=== PATIENT | female | born 1960 | race Caucasian/White ===

== ENCOUNTER 2019-06-06 06:14 | Observation (INO) | payer BC ==
[2019-06-06] MEDS ORDERED: Dextrose 50% Abboject 50 ML SYRINGE IVP PRN (07:45)
[2019-06-06] MEDS ORDERED: Dextrose 5% in Water 1,000 ML IV PRN ×2 (07:45→08:41)
[2019-06-06] MEDS ORDERED: Dextrose 5 % And 0.9 % NaCl 1,000 ML IV SCH (07:45)
[2019-06-06] MEDS ORDERED: HumaLOG 300 UNITS/3 ML VIAL SC PRN (07:48)
[2019-06-06 08:02] VITALS: BMI 23.5
[2019-06-06] MEDS ORDERED: Ondansetron PF 4 MG/2 ML Vial IVP PRN (08:41)
[2019-06-06] MEDS ORDERED: Dextrose 50 % In Water 50 ML SYRINGE IV PRN (08:41)
[2019-06-06] MEDS ORDERED: Ondansetron ODT 4 MG TAB PO PRN (08:41)
[2019-06-06] MEDS ORDERED: Bisacodyl 10 MG SUPP PR PRN (08:41)
[2019-06-06] MEDS ORDERED: Acetaminophen 325 MG TAB PO PRN (08:41)
[2019-06-06] MEDS ORDERED: HYDROcodone/Acetaminophen 5/325 mg Tablet PO PRN (08:41)
[2019-06-06] MEDS ORDERED: Senokot S 8.6-50 MG TAB PO PRN (08:41)
[2019-06-06] MEDS ORDERED: Atorvastatin Calcium 20 MG TAB PO SCH (09:00)
--- NOTE | 2019-06-06 09:53 | HP ---
CHIEF COMPLAINT: Acute mental status change and hypoglycemia. HISTORY OF PRESENT ILLNESS: A 58-year-old female with insulin-requiring diabetes mellitus, on insulin pump, admitted on transfer from [facility] for evaluation and treatment of refractory hypoglycemia. The patient reportedly was observed by spouse to be acting abnormal and restless and talking while asleep. They checked her blood sugar and it was noted to be very low around 40s, hence they gave some oral glucose and rechecked, but it was showed to be very high. A few minutes later, they rechecked it and it showed 40 again, and the patient was beginning to have slurry speech and marked confusion as well as inappropriate behavior; hence she was taken to the ER in [place]. EMS has given the patient some glucose drink, and blood sugar has gone up to above 200, but on arrival to the ER, it was noticed to be in 100s, hence she got additional treatment for hypoglycemia. She was rechecked and blood sugar was still low after increasing to above 200, hence decision was made to bring the patient over here for further evaluation and treatment. The patient reportedly stopped her insulin pump around 0530 hours this morning. Of note, son was diagnosed with influenza a few days ago and was started on Tamiflu. Also yesterday, the patient exerted herself a little more due to preparations for Thanksgiving and only ate once in the afternoon around 3 o'clock when she gave herself additional bolus of 5 units of short-acting insulin. She did not eat in the morning nor in the evening. There is no history of fever, nausea, vomiting, abdominal pain, leg swelling, dysuria, hematuria, change in bowel habit, or focal weakness. The patient, however, was admitted to sneezing yesterday afternoon, which has subsided. In the emergency room here, the patient was noted to have blood sugar in 100s, hence was started on D5 half-normal saline at 50 mL which the patient is still getting. Blood pressures have stabilized, and the patient seems back to baseline. She is talking and conversing with appropriate mental status. She also has had her breakfast and feels a lot better. She, however, has no memory of event leading to have this spouse calling the EMS to take her to the emergency room. PAST MEDICAL HISTORY: 1. Insulin-dependent diabetes mellitus, on insulin pump. 2. Hypothyroidism. 3. Hyperlipidemia. 4. Hypertension. PAST SURGICAL HISTORY: section and tubal ligation. FAMILY HISTORY: Reviewed, but noncontributory. SOCIAL HISTORY: The patient lives with spouse and family. Denied alcohol or recreational drug use or tobacco. ALLERGIES: NO KNOWN DRUG ALLERGIES REPORTED. CURRENT HOME MEDICATIONS: 1. Insulin pump. 2. Synthroid 100 mcg daily. 3. Lipitor 20 mg p.o. daily. 4. Ramipril 10 mg p.o. daily at bedtime. REVIEW OF SYSTEMS: Twelve-point review of system was performed, was negative other than pertinent positives and negatives included in the history of present illness. PHYSICAL EXAMINATION: VITAL SIGNS: Current vitals show temperature 97.7, pulse 86, respiratory rate 16, SpO2 of 99% on room air, blood pressure is 153/67. GENERAL: A healthy-looking female, in no distress. Afebrile. Anicteric. Acyanotic. HEENT: Normocephalic and atraumatic. Oral mucosa is moist. NECK: Supple. Nontender with good range of motion. No masses or lymphadenopathy appreciated. CARDIOVASCULAR: Regular rhythm and rate. Normal heart sounds 1 and 2. No obvious murmur was appreciated. RESPIRATORY: Good air entry bilaterally with no crackles or rhonchi or use of accessory muscles. GI: Full, soft, nontender, nondistended with normal bowel sounds. EXTREMITIES: Grossly normal looking atraumatic with no edema or erythema. WASTE CHOPPER: Conscious, alert, oriented x3 with appropriate mental status. Cranial nerves 2 through 12 are grossly intact. The patient moves all extremities. The patient is ambulant. DIAGNOSTIC DATA: CBC showed WBC count of 8.7, hemoglobin of 13.1, MCV of 93.3, platelet of 255. CMP showed sodium 140, potassium 4.1, chloride 104, CO2 of 26, BUN 17, creatinine 0.96, glucose 218, calcium 9.2, total bilirubin 0.3, AST 19, ALT 23, alkaline phosphatase 56, total protein 7.2, albumin 3.2, globulin 3.0. Initial troponin was less than 0.010. Urinalysis showed yellow hazy urine with pH of 5.0, specific gravity of 1.025, urine glucose of 500, trace ketone and blood, but negative protein, nitrite, bilirubin, and leukocyte esterase. Urine microscopy showed rbc 0 to 3 and wbc 0 to 3 with 0 to 3 squamous cells. Chest x-ray reviewed by me showed no obvious consolidation or pneumothorax. Formal radiology read is awaited at this time. ASSESSMENT: 1. Acute mental status change due to hypoglycemia. 2. Refractory hypoglycemia, etiology is unclear, but seems to be related to poor oral intake while insulin therapy was continued in a patient who is noted herself a little more than usual. Occult infection is a concern. The patient reported sick contacts with son who has recent diagnosis of influenza and currently on Tamiflu. 3. Hypertension. 4. Hyperlipidemia. 5. Insulin-dependent diabetes mellitus, on insulin pump. 6. Hypothyroidism. PLAN: 1. We will continue D5 half-normal saline at 50 mL until after lunch. We will discontinue it after lunch and monitor glucose closely. We will treat hypoglycemia as we did according to protocol. 2. We will avoid insulin therapy today. 3. We will get respiratory viral panel to rule out viral infection. 4. UTI has been ruled out with urinalysis. 5. We will restart ramipril, Lipitor, and Synthroid. 6. DVT prophylaxis with Lovenox will be started. 7. We will continue diabetic diet. 8. Code status full code. Spouse is the surrogate decision maker. Further treatment to follow depending on hospital course. Job ID: [id number]
[2019-06-06] MEDS: Famotidine 20 MG TAB PO SCH ×2 (10:19→19:31)
[2019-06-06] MEDS: Enoxaparin Sodium 40 MG/0.4 ML SYRINGE SC SCH ×2 (10:20→10:24)
[2019-06-06] MEDS: Famotidine/PF 20 mg/2ml Vial SLOW IVP SCH ×2 (10:22→19:32)
[2019-06-06] MEDS ORDERED: Sodium Chloride 0.65% Nasal 44 ML BOT EA NARE PRN (20:04)
[2019-06-07 05:15] LABS: #Basophils 0.1 thou/uL (0.0-0.2); #Eosinphils 0.6 thou/uL (0.0-0.7); #Lymphocytes 1.8 thou/uL (1.20-3.40); #Monocytes 0.5 thou/uL (0.11-0.59); %Basophils 1.1 % (0.0-1.0); %Eosinophils 10.4 % (0.0-10.0); %Lymphocytes 30.2 % (21.0-51.0); %Monocytes 8.3 % (0.0-10.0); Hemoglobin 12.7 g/dL (12.0-16.0); Mean Corpuscular HGB CONC 33.5 g/dL (32.0-36.0); Mean Corpuscular Hemoglobin 30.1 pg (27.0-31.0); Mean Corpuscular Volume 89.9 fL (78.0-98.0); Mean Platelet Volume 7.2 fL (7.4-10.4); Platelet Count 250 thou/uL (130-400); RBC Distribution Width 11.4 % (11.5-14.5); Red Blood Cell (RBC) Count 4.21 mill/uL (4.20-5.40)
[2019-06-07 05:34] LABS: ALT (SGPT) 16 U/L (8-55); AST (SGOT) 16 U/L (5-34); Albumin 3.8 g/dL (3.5-5.0); Alkaline Phosphatase 59 U/L (40-110); Anion Gap 8 mmol/L (10-20); BUN (Urea Nitrogen) 16 mg/dL (9.8-20.1); Bilirubin, Total 0.6 mg/dL (0.2-1.2); Calc. Creatinine Clearance 71 mL/min (70-130); Calcium 9.3 mg/dL (7.8-10.44); Carbon Dioxide 30 mmol/L (22-29); Chloride 106 mmol/L (98-107); Estimated GFR-MDRD 64; Glucose 70 mg/dL (70-105); Potassium 4.3 mmol/L (3.5-5.1); Protein, Total 6.8 g/dL (6.0-8.3); Sodium 140 mmol/L (136-145)
[2019-06-07] MEDS ORDERED: Levothyroxine Sodium 100 MCG TAB PO SCH (06:00)
[2019-06-07] MEDS: Famotidine/PF 20 mg/2ml Vial SLOW IVP SCH (08:58)
[2019-06-07] MEDS: Famotidine 20 MG TAB PO SCH (09:01)
[2019-06-07] MEDS: Enoxaparin Sodium 40 MG/0.4 ML SYRINGE SC SCH (09:01)
[2019-06-07 12:02] VITALS: BP 128/63; TEMP 98
--- NOTE | 2019-06-07 15:17 | DIS ---
DATE OF ADMISSION: 06/06/2019 DATE OF DISCHARGE: 06/07/2019 PRIMARY CARE PHYSICIAN: Out of [facility]. DISCHARGE DIAGNOSES: 1. Acute metabolic encephalopathy. 2. Refractory hypoglycemia. 3. Uncontrolled hypertension. 4. Hyperlipidemia. 5. Insulin-dependent diabetes mellitus, on insulin pump. 6. Hypothyroidism. HOSPITAL COURSE: A 58-year-old female with known history of insulin-requiring diabetes mellitus, on insulin pump, admitted on transfer from [facility] for evaluation and treatment of refractory hypoglycemia. The patient had several treatment with dextrose for hypoglycemia, but this was followed by hypoglycemia, hence was started on continuous dextrose containing infusion. Initial acute encephalopathy resolved with improvement in blood sugar levels. The patient reportedly ate little while she continued to get continuous insulin infusion via her pump. Occult infection was ruled out with respiratory viral panel and urinalysis. Insulin pump was discontinued and blood sugars were monitored closely. Blood sugars consistently were above 300 and insulin pump was subsequently restarted. Overnight, while on insulin pump, it was noted that blood sugars were in 70 in the morning before breakfast, hence it was felt that the basal insulin rate was higher. Currently, the patient gets 1.25 units every hour from 6 a.m. to 12 midnight and 1.5 units from 12 midnight to 2 a.m. and 0.75 units from 2 a.m. to 6 a.m. This was changed to 1 unit/hour from 6 a.m. to 2 a.m. and from 2 a.m. to 6 a.m. 0.5 units/hour. The patient was instructed to bolus herself additional units during meal time. The patient also was instructed to follow up with her regular topographical surveyor in 3 to 5 days for further adjustment of insulin pump therapy. The patient remained stable and was subsequently discharged home. Of note, blood pressure was noted to be uncontrolled, hence ramipril was increased from 2.5 mg p.o. daily to 5 mg p.o. daily with improvement in blood pressure control. PHYSICAL EXAMINATION: VITAL SIGNS: Temperature 98, pulse 71, respiratory rate 16, SpO2 of 97% on room air, blood pressure is 128/63. GENERAL: Middle-aged female, in no distress. Afebrile. Anicteric. Acyanotic. HEENT: Normocephalic and atraumatic. Oral mucosa is moist. CARDIOVASCULAR: Regular rhythm and rate with normal heart sounds 1 and 2. RESPIRATORY: Good air entry bilaterally with no crackle or rhonchi or use of accessory muscles. GI: Full, soft, nontender, and nondistended with normal bowel sounds. EXTREMITIES: Grossly normal looking, atraumatic, with no edema or erythema. RECONNAISSANCE MAN: Conscious, alert, and oriented x3 with appropriate mental status. Cranial nerves 2 through 12 are grossly intact. The patient is ambulant. DISCHARGE DISPOSITION: Home. DISCHARGE CONDITION: Improved. DISCHARGE MEDICATIONS: 1. Lipitor 20 mg p.o. on Sunday, Sunday, and Sunday. 2. Levothyroxine 100 mcg p.o. daily. 3. Insulin pump with basal of 1 unit/hour from 6 a.m. to 2 a.m. and 0.5 units from 2 a.m. to 6 a.m. 4. Ramipril 5 mg p.o. daily. DISCHARGE INSTRUCTIONS: The patient is to follow up with the topographical surveyor in 3 to 5 days. Job ID: [id number]
== END 2019-06-07 13:00 | disposition home or self-care (01) ==
LOC: ERS 06:14 → 2SW 07:32 → INTOOBSV 07:32
PROVIDERS: ADMIT Family Medicine; ATTEND Family Medicine
DX: E11.649 Type 2 diabetes mellitus with hypoglycemia without coma (principal); G93.41 Metabolic encephalopathy; I10 Essential (primary) hypertension; E78.5 Hyperlipidemia, unspecified; E03.9 Hypothyroidism, unspecified; E78.00 Pure hypercholesterolemia, unspecified; Z79.4 Long term (current) use of insulin; Z79.899 Other long term (current) drug therapy
CPT/HCPCS: 36415; 36416; 80053; 85025; 87633; 96360; 96361; 99285; G0378; J1650